=== PATIENT | male | born 1965 | race Caucasian/White ===

== ENCOUNTER → 2018-12-17 | Outpatient (CLI) | payer OTHER ==
--- NOTE | 2018-12-17 17:06 | RAD ---
Exam:Left ribs with PA chest Date: 12/17/2018 12:00 AM Comparison: No prior Indication: Left rib pain Findings/ Impression: The heart is not enlarged. Mediastinal and hilar contours are normal. No focal parenchymal airspace opacity. No pleural effusion or pneumothorax. AP, Oblique and Spot images of the left ribs demonstrate minimally displaced fractures of the posterior lateral left seventh and eighth ribs. Moderate associated pleural elevation. Symmetrical intercostal spacing. Mild offset right AC joint, may represent age-indeterminate AC separation or be projectional. Electronically signed by: Cornell Jauregui MD (12/17/2018 5:03 PM) [facility]
== END | disposition home or self-care (01) ==
LOC: PMG 15:48
PROVIDERS: ATTEND Family Medicine
DX: S22.42XA Multiple fractures of ribs, left side, initial encounter for closed fracture (principal); X58.XXXA Exposure to other specified factors, initial encounter; Y93.89 Activity, other specified; Y92.89 Other specified places as the place of occurrence of the external cause; Y99.8 Other external cause status
CPT/HCPCS: 71101